=== PATIENT | male | born 1955 | race Caucasian/White ===

== ENCOUNTER 2017-07-04 18:57 | Emergency (ER) | payer SELFPAY ==
[2017-07-04 19:06] VITALS: BP 178/89; BMI 29.9
--- NOTE | 2017-07-04 20:50 | DR.GENAD ---
HPI - PCP Primary Care Physician: JOHANNA - Complaint/Symptoms Chief Complaint Doctors Comments: Patient states he was waling between two trailers last night and he stumpled over something and fell landing on his left hand with swelling and pain mainly in the 5th finger. States his had was swollen more until he took a tylenol. Hit his left forehead but denies LOC, nasuea, vomiting, cold or cough. States he is unsure when he had his last tetanus shot. 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 He denies chest pain, blurred vision or neck pain. states he has an abrasion on his right. Chief Complaint:: STATES THAT HE FELL LAST NIGHT AND STUMBLED OVER SOMETHING. HE STATES HE THINKS HE MAY HAVE BROKEN SOMETHING IN HIS LEFT HAND. PATIENT DENIES SEEING DOCTOR LAST NIGHT. PATIENT REPORTS GREATEST PAIN IS ON THE LEFT HAND NEAR 5TH DIGIT. LEFT HAND IS NOTED WITH EDEMA AND TENDERNESS UPON PALPATION. Self Treatment fo Chief Complaint: MOTRIN FOR PAIN. - Nurses notes reviewed Nurses Notes Review: Yes - Source History Provided: Patient - Mode of Arrival Mode of Arrival: Ambulatory - Timing Onset of Chief Complaint: 07/03/17 Came on: Suddenly - Duration Duration: Constant How lon Duration: Days - Location Location: left hand pain and swelling - Severity Severity: Moderate - Modifying Factors Worsens:: movement Improves:: nothing PMH - PMH Past Medical History: Yes Past Medical History: CVA, Hypertension Past Medical History Comment: MA Past Surgical History: Yes Past Surgical History Comment: RIGHT WRIST SURGERY - Family History History of Family Medical Conditions: No - Social History Type of Tobacco Use: None Alcohol Use: None Lives With: Family Lives Where: Home - infectious screening In the last 2 months have you had wt loss of >10#?: NO Have you had fever, night sweats or hemotysis?: No Have you traveled outside the country in the last 6 months?: No Isolation: Standard ROS - Review of Systems Constitutional: No Symptoms Reported. negative: See HPI, Chills, Diaphoresis, Fever, Malaise, Weakness, Irritable, Fatigue, Loss of Appetite, Other Eyes: No Symptoms Reported ENTM: No Symptoms Reported Respiratoy: No Symptoms Reported. negative: See HPI, Productive Cough, Non- Productive Cough, Moist Cough, Dry Cough, Hacking Cough, Barking Cough, Brassy Cough, Orthopnea, Short of Breath, Stridor, Wheezing, Hemoptysis, Other Cardiovascular: No Symptoms Reported. negative: See HPI, Chest Pain, Edema, Palpitations, Syncope, Cyanosis, Skin Mottling, Other Gastrointestinal/Abdominal: No Symptoms Reported. negative: See HPI, Abdominal Pain, Constipation, Diarrhea, Nausea, Vomiting, Food Intolerance, Other Genitourinary: No Symptoms Reported. negative: See HPI, Discharge, Dysuria, Frequency, Hematuria, Pain, Bleeding, Other Neurological: No Symptoms Reported Musculoskeletal: No Symptoms Reported, Left, Hand (swelling) Integumentary: Lesions (left hand with multiple abrasions), Wound, Bruises Hematologic/Lymphatic: No Symptoms Reported Endocrine: No Symptoms Reported. negative: See HPI, Excessive Sweating, Flushing, Intolerance to Cold, Intolerance to Heat, Increased Hunger, Increased Thirst, Increased Urine, Unexplained Weight Gain, Unexplained Weight Loss, Failure to Thrive, Decreased Appetite, Other Psychiatric: No Symptoms Reported PE - Vital Signs Vitals: Temperature 98.7 F Pulse Rate 99 Respiratory Rate 20 Blood Pressure 178/89 O2 Sat by Pulse Oximetry 99 - General Limitations: No Limitations General Appearance: Alert, In Distress (slight) - Head Head Exam: Normal Inspection, Normocephalic. negative: Atraumatic (right eyebrow with 2 cm superficial laceration) - Eyes Eye exam: Normal Appearance, PERRL, EOMI. negative: Scleral Icterus, Conjunctival Injection, Nystagmus, Miosis, Mydrasis, Periorbital Swelling, Periorbital Tenderness, Other - ENT ENT Exam: Normal Exam, Normal Oropharynx, Normal External Ear Exam, Mucous Membranes Moist, TM's Normal Bilaterally External Ear Exam: Normal External Inspection TM/Canal Exam: Bilateral Normal Nose Exam: Normal Nose Exam Mouth Exam: Normal Inspection Throat Exam: Normal Inspection - Neck Neck Exam: Normal Inspection, Full ROM, Trachea Midline. negative: Tenderness, Meningismus, Lymphadenopathy, Thyromegaly, Other - Chest Chest Inspection: Normal Inspection, Symmetric Chest Wall Rise - Respiratory Respiratory Exam: Normal Lung Sounds Bilat Respiratory Exam: Bilateral Clear to Auscultation - Cardiovascular Cardiovascular Exam: Regular Rate, Normal Heart Sounds, Diastolic Murmur - Abdominal Exam Abdominal Exam: Normal Inspection, Normal Bowel Sounds, Soft Abdominal Tenderness: negative: RUQ, RLQ, LUQ, LLQ, Epigastrium, Suprapubic, Diffuse, Mild, Moderate, Severe, Other - Extremities Extremities Exam: Normal Inspection, Full ROM, Tenderness (left hand with moderate swelling abrasions; skin tears), Normal Capillary Refill - Back Back Exam: Normal Inspection, Full ROM - Neurologic Neurological Exam: Alert, Oriented X3, CN II-XII Intact, Normal Gait, Reflexes Normal - Psychiatric Psychiatric Exam: Normal Affect, Normal Mood - Skin Skin Exam: Warm, Dry, Intact, Normal Color ROR - Labs Reviewed Laboratory Results Reviewed?: Yes (all x-ray results reviewed and discussed with patient) - XRAY XRAY Interpreted by: Radiologist (left hand: Oblique fracature through the base of the proximal phalanx of 5th digit) - Diagnosis Discharge Problem: Fall Proximal phalanx fracture of finger Qualifiers: Encounter type: initial encounter Finger: little finger Laterality: left Abrasion of left hand and fingers Qualifiers: Encounter type: initial encounter Qualified Code(s): S60.512A - Abrasion of left hand, initial encounter; S60.419A - Abrasion of unspecified finger, initial encounter; S60.419A - Abrasion of unspecified finger, initial encounter Contusion of left hand Qualifiers: Encounter type: initial encounter Qualified Code(s): S60.222A - Contusion of left hand, initial encounter - Discharge Plan Disposition: 01 HOME, SELF-CARE Condition: Stable Prescriptions: Cephalexin [KEFLEX CAP 500 MG *] 500 mg PO TID #30 cap Ibuprofen [MOTRIN TAB 800 MG *] 800 mg PO BID PRN #60 tab PRN Reason: Pain/Inflammation Mupirocin Oint [BACTROBAN OINT 2%] 1 applic EXT BID #22 gm - Follow ups/Referrals Follow ups/Referrals: JAMIE SPENCER [Primary Care Provider] - 3 days SOUTH PERKINS [STAFF PHYSICIAN] - 3 days - Instructions Instructions: Avulsion Fracture of the Hand, Metacarpal Fracture, Crush Injury , Fingers or Toes, [id number], Laceration Care, Adult, [id number], Fall Prevention in the Home, [id number]
--- NOTE | 2017-07-04 21:37 | RAD ---
HAND RADIOGRAPHS CLINICAL HISTORY: 61-year-old male with left hand pain. COMPARISON: None. FINDINGS: Three views of the left hand demonstrate an oblique fracture through the base of the proxim al phalanx of the 5th digit with surrounding edema. Remaining osseous structures are intact and joint spaces are congruent. IMPRESSION: Oblique fracture through the base of the proximal phalanx of the 5th digit with surrounding edema wit hout extension into the joint. Reported By:
[2017-07-04] MEDS ORDERED: ADACEL TDaP IM ONE ×2 (21:45→21:56)
[2017-07-04] MEDS ORDERED: KEFLEX CAP 500 MG PO ONE ×2 (21:46→21:55)
[2017-07-04] MEDS ORDERED: BACTROBAN OINT TOP ONE (21:47)
== END 2017-07-04 22:29 | disposition home or self-care (01) ==
LOC: ER 18:57
DX: S62.617A Displaced fracture of proximal phalanx of left little finger, initial encounter for closed fracture (principal); S60.512A Abrasion of left hand, initial encounter; S60.419A Abrasion of unspecified finger, initial encounter; S60.222A Contusion of left hand, initial encounter; W19.XXXA Unspecified fall, initial encounter; Y92.9 Unspecified place or not applicable
CPT/HCPCS: 73130; 99282; 99283

== ENCOUNTER → 2017-07-11 | Outpatient (CLI) | payer BC ==
[2017-07-04 19:06] VITALS: BP 178/89
[2017-07-11 10:36] LABS: BASOPHILS # (AUTO) 0.1 X10^3/uL (0.0-0.1); BASOPHILS % (AUTO) 0.9 % (0.2-1.0); EOSINOPHILS # (AUTO) 0.3 x10^3/uL (0.0-0.2); EOSINOPHILS % (AUTO) 3.7 % (0.9-2.9); HEMATOCRIT 40.2 % (42.0-54.0); HEMOGLOBIN 13.9 g/dL (13.5-18.0); LYMPHOCYTES # (AUTO) 1.4 X10^3/uL (1.3-2.9); LYMPHOCYTES % (AUTO) 17.2 % (21.0-51.0); MEAN CORPUSCULAR HEMOGLOBIN 29.2 pg (27.0-34.0); MEAN CORPUSCULAR HGB CONC 34.6 g/dL (33.0-35.0); MEAN CORPUSCULAR VOLUME 84.2 fL (80.0-100.0); MEAN PLATELET VOLUME 7.9 fL (7.4-11.0); MONOCYTES # (AUTO) 0.4 x10^3/uL (0.3-0.8); MONOCYTES % (AUTO) 5.2 % (0.0-13.0); NEUTROPHILS # (AUTO) 6.1 x10^3/uL (2.2-4.8); PLATELET COUNT 201 X10^3/uL (150.0-450.0); RED BLOOD COUNT 4.78 X10^6/uL (4.7-6.0); RED CELL DISTRIBUTION WIDTH 14.6 % (11.6-16.5); WHITE BLOOD COUNT 8.4 X10^3/uL (3.6-10.0)
[2017-07-11 10:45] LABS: ALANINE AMINOTRANSFERASE 30 Units/L (12-78); ALBUMIN 3.6 g/dL (3.4-5.0); ALKALINE PHOSPHATASE 97 Units/L (46-116); ASPARTATE AMINO TRANSFERASE 16 Units/L (15-37); BLOOD UREA NITROGEN 20 mg/dL (7-18); CALCIUM 7.9 mg/dL (8.5-10.1); CARBON DIOXIDE 28.8 mmol/L (21-32); CHLORIDE 104 mmol/L (98-107); CHOL/HDL RATIO 5.8 (0.0-5.0); CHOLESTEROL 190 mg/dL (0-200); COR NA(FOR HYPERGLY) 145 mmol/L (136-145); CREATININE 0.71 mg/dL (0.70-1.30); HDL CHOLESTEROL 33 mg/dL (40-60); SODIUM 141 mmol/L (136-145); TOTAL PROTEIN 7.2 g/dL (6.4-8.2); TRIGLYCERIDES 250 mg/dL (0-150); eGFR BLACK RACES > 60 (>60); eGFR NON BLACK RACES > 60 (>60)
[2017-07-11 10:51] LABS: CREATININE,URINE 29.15 mg/dL (40-278)
[2017-07-11 10:53] LABS: HEMOGLOBIN A1C 9.2 %
== END ==
LOC: LAB 09:56
PROVIDERS: ATTEND Obstetrics & Gynecology Obstetrics
DX: E11.9 Type 2 diabetes mellitus without complications (principal); S62.617A Displaced fracture of proximal phalanx of left little finger, initial encounter for closed fracture; X58.XXXA Exposure to other specified factors, initial encounter
CPT/HCPCS: 36415; 80053; 80061; 82043; 83036; 83525; 85025; 93005; 93010

== ENCOUNTER 2017-07-20 11:54 | Emergency (ER) | payer BC, OTHER ==
[2017-07-20 12:05] VITALS: BP 180/88; BMI 29.7
--- NOTE | 2017-07-20 12:53 | DR.CP ---
HPI - Time Seen Time seen: 13:30 - PCP Primary Care Physician: DR. SPENCER - HPI Comment HPI Comment: PATIENT DENIES CHEST PAIN, WEAKNESS, NAUSEA. SLIGHT SOB ON EXERTION. DENIES NEAR SYNCOPAL EPISODES OR SYNCOPE. HISTORY HYPERTENSION. EKG DONE FOR PRE SURGICAL CLEARANCE FOR HAND SURGERY. - Complaint Chief Complaint Doctor Comments: OUT PATIENT EKG DONE AND ST ELEVATION PRESENT. HERE FOR EVALUATION. Chief Complaint:: PATIENT WAS HERE FOR PRE OP FOR DR. ZAPATA AND HIS EKG WAS ABNORMAL. RES. BROUGHT PATIENT OVER FOR FUTHER EVALUATION. - Reviewed Nurses Notes Review: Yes - Source History Provided: Patient - Mode of Arrival Mode of Arrival: Wheelchair - Timing Onset of Chief Complaint: 07/20/17 Came on: Suddenly - Duration Duration: Constant Duration: Days - Location Chest Pain Radiation Location: None - Associated Signs and Symptoms Associated Signs and Symptoms: None PMH - PMH Past Medical History: Yes Past Medical History: Hypertension Past Surgical History: No - Family History History of Family Medical Conditions: No - Social History Type of Tobacco Use: Smokeless Does any household member use tobacco: No Alcohol Use: None Do you use any recreational Drugs:: No Lives With: Family Lives Where: Home - infectious screening In the last 2 months have you had wt loss of >10#?: NO Have you had fever, night sweats or hemotysis?: No Have you traveled outside the country in the last 6 months?: No Isolation: Standard ROS - Review of Systems Constitutional: No Symptoms Reported Eyes: No Symptoms Reported ENTM: No Symptoms Reported Respiratoy: No Symptoms Reported Cardiovascular: No Symptoms Reported Gastrointestinal/Abdominal: No Symptoms Reported Genitourinary: No Symptoms Reported Neurological: No Symptoms Reported Musculoskeletal: Left, Hand (IN CAST.) Integumentary: No Symptoms Reported Hematologic/Lymphatic: No Symptoms Reported Endocrine: No Symptoms Reported All Other Systems: Reviewed and Negative PE - Vitals Vitals: Temperature 98.1 F Pulse Rate 78 Respiratory Rate 20 Blood Pressure 180/88 O2 Sat by Pulse Oximetry 94 - General Limitations: No Limitations General Appearance: Alert - Head Head Exam: Normal Inspection - Eyes Eye exam: Normal Appearance - ENT ENT Exam: Normal External Ear Exam - Chest Chest Inspection: Symmetric Chest Wall Rise - Respiratory Respiratory Exam: Normal Lung Sounds Bilat Respiratory Exam: Bilateral Clear to Auscultation - Cardiovascular Cardiovascular Exam: Regular Rate, Normal Rhythm, Normal Heart Sounds Pulse: Normal - Abdominal Exam Abdominal Exam: Normal Inspection - Extremities Extremities Exam: Tenderness (LT HAND AND WRIST IMMOBILIZE) - Back Back Exam: Normal Inspection - Neurologic Neurological Exam: Alert, Oriented X3, CN II-XII Intact. negative: Motor Sensory Deficit - Psychiatric Psychiatric Exam: Normal Affect, Normal Mood - Skin Skin Exam: Normal Color MDM - Differential Diagnosis Differential Diagnosis: Myocardial Infarction, Pericarditis (CAD) Course - Treatment Treatment: LABS DONE FOR PRE-OP. CARDIAC ENZYMES ORDER ZENA DONE ON SAME BLOOD IN LAB. - Education/Counseling Education/Counseling: Patient, Education Educated On: Needs for Follow Up (PATIENT LEFT BEFORE EVALUATION COMPLTED. D/C AMA.) ROR - Labs Reviewed Laboratory Results Reviewed?: Yes Laboratory: Creatine Kinase 67 Units/L (39-308) 07/20/17 11:26 CK-MB (CK-2) 2.2 ng/mL (0-4.0) 07/20/17 11:26 CK/CKMB % Calc 3.3 % (<4) 07/20/17 11:26 Troponin I 0.02 ng/mL (0-1.5) 07/20/17 11:26 - EKG ST: Inf (INFERIOR WALL ST ELEVATION.) - Diagnosis Discharge Problem: Abnormal EKG - Discharge Plan Disposition: AGAINST MEDICAL ADVICE Condition: Stable - Follow ups/Referrals Follow ups/Referrals: JAMIE SPENCER [Primary Care Provider] - 3 days - Instructions Instructions: Electrocardiogram, [id number] Additional Instructions: DISCHARGE AMA. FOLLOW UP WITH PCP ANGELA. YOUR EKG IS ABNORMAL.
[2017-07-20 13:03] LABS: CKMB % 3.3 % (<4); CREATINE KINASE MB 2.2 ng/mL (0-4.0); TROPONIN I 0.02 ng/mL (0-1.5)
== END 2017-07-20 14:06 | disposition left against medical advice (07) ==
LOC: ER 12:09
DX: R94.31 Abnormal electrocardiogram [ECG] [EKG] (principal)
CPT/HCPCS: 36415; 82550; 82553; 84484; 93005; 93010; 99282

== ENCOUNTER → 2017-07-20 | Outpatient (CLI) | payer OTHER ==
[2017-07-04 19:06] VITALS: BP 178/89
[2017-07-20 12:09] LABS: BASOPHILS % (AUTO) 0.5 % (0.2-1.0); EOSINOPHILS # (AUTO) 0.3 x10^3/uL (0.0-0.2); HEMATOCRIT 39.6 % (42.0-54.0); HEMOGLOBIN 13.5 g/dL (13.5-18.0); LYMPHOCYTES # (AUTO) 1.6 X10^3/uL (1.3-2.9); LYMPHOCYTES % (AUTO) 20.5 % (21.0-51.0); MEAN CORPUSCULAR HEMOGLOBIN 28.9 pg (27.0-34.0); MEAN CORPUSCULAR HGB CONC 34.2 g/dL (33.0-35.0); MEAN CORPUSCULAR VOLUME 84.5 fL (80.0-100.0); MEAN PLATELET VOLUME 8.4 fL (7.4-11.0); MONOCYTES # (AUTO) 0.4 x10^3/uL (0.3-0.8); MONOCYTES % (AUTO) 5.6 % (0.0-13.0); NEUTROPHILS # (AUTO) 5.5 x10^3/uL (2.2-4.8); NEUTROPHILS % (AUTO) 69.4 % (42.0-75.0); PLATELET COUNT 175 X10^3/uL (150.0-450.0); RED BLOOD COUNT 4.69 X10^6/uL (4.7-6.0); RED CELL DISTRIBUTION WIDTH 14.7 % (11.6-16.5); WHITE BLOOD COUNT 7.9 X10^3/uL (3.6-10.0)
[2017-07-20 12:16] LABS: ALANINE AMINOTRANSFERASE 29 Units/L (12-78); ALBUMIN 3.6 g/dL (3.4-5.0); ALKALINE PHOSPHATASE 101 Units/L (46-116); ASPARTATE AMINO TRANSFERASE 14 Units/L (15-37); BLOOD UREA NITROGEN 14 mg/dL (7-18); CALCIUM 7.9 mg/dL (8.5-10.1); CARBON DIOXIDE 27.9 mmol/L (21-32); CHLORIDE 101 mmol/L (98-107); COR NA(FOR HYPERGLY) 144 mmol/L (136-145); CREATININE 0.74 mg/dL (0.70-1.30); SODIUM 139 mmol/L (136-145); eGFR BLACK RACES > 60 (>60); eGFR NON BLACK RACES > 60 (>60)
[2017-07-20 12:34] LABS: BILIRUBIN,URINE NEGATIVE (NEGATIVE); BLOOD/HEMOGLOBIN,URINE 1+ (NEGATIVE); GLUCOSE, URINE 4+ (NEGATIVE); KETONES,URINE NEGATIVE (NEGATIVE); LEUKOCYTE ESTERASE ,URINE NEGATIVE (NEGATIVE); NITRITES,URINE NEGATIVE (NEGATIVE); PROTEIN,URINE 2+ (NEGATIVE); UROBILINOGEN,URINE NORMAL (NORMAL)
[2017-07-20 12:41] LABS: APPEARANCE,URINE CLEAR (CLEAR); BACTERIA,URINE NEGATIVE /HPF (NEGATIVE); COLOR,URINE YELLOW (YELLOW); MUCUS,URINE FEW /HPF (NEGATIVE); RBC,URINE 0-2 /HPF (NONE SEEN); SQUAMOUS EPITHELIAL CELL,UR NEGATIVE /HPF (NEGATIVE)
[2017-07-20 12:42] LABS: ERYTHROCYTE SEDIMENTATION RATE 2 MM/HOUR (0-15)
--- NOTE | 2017-07-20 18:45 | RAD ---
HISTORY: Chest pain Study: Single-view chest. Comparison: None. Findings: The trachea is midline. The cardiac silhouette is unremarkable. The lungs are clear without focal i nfiltrate or effusion. The bony thorax is unremarkable. IMPRESSION: No acute cardiopulmonary disease. Soft tissue fullness in the right suprahilar region warrants follow-up with either formal PA and late ral views of the chest with improved inspiratory effort or noncontrast chest CT imaging to exclude a lung nodule versus pulmonary artery. Reported By:
== END ==
LOC: LAB 11:10
PROVIDERS: ATTEND Orthopaedic Surgery
DX: Z01.818 Encounter for other preprocedural examination (principal); Z01.810 Encounter for preprocedural cardiovascular examination; Z01.811 Encounter for preprocedural respiratory examination; Z79.899 Other long term (current) drug therapy; Z11.8 Encounter for screening for other infectious and parasitic diseases; S62.617A Displaced fracture of proximal phalanx of left little finger, initial encounter for closed fracture; X58.XXXA Exposure to other specified factors, initial encounter
CPT/HCPCS: 36415; 71045; 80053; 81001; 85025; 85652; 86140; 87640; 87641; 93005; 93010

== ENCOUNTER 2017-07-22 07:35 | Day surgery (SDC) | payer BC, OTHER ==
[2017-07-22] MEDS ORDERED: BACTROBAN OINT ONE (07:45)
[2017-07-22] MEDS ORDERED: XYLOCAINE 1 % (PLAIN) ONE (07:45)
[2017-07-22] MEDS: ANCEF 1 GM IV PREMIX* 1 GM/50 ML BAG IV ONE ×2 (08:05→08:30)
[2017-07-22] MEDS: NS 1000 ML 1,000 ML ONE ×2 (08:06→08:09)
[2017-07-22] MEDS ORDERED: FENTANYL INJ 100 mcg ONE (08:17)
[2017-07-22] MEDS ORDERED: MARCAINE 0.5% ONE ×2 (08:17→15:38)
[2017-07-22] MEDS ORDERED: ADRENALINE CHL INJ ONE (08:31)
[2017-07-22] MEDS ORDERED: NS IRRIGATION 1000 ML 1,000 ML with BACITRACIN VIAL 50,000 UNT IR ONE ×2 (09:17)
[2017-07-22] MEDS ORDERED: BENADRYL INJ 50 MG VIAL IVP PRN (10:29)
[2017-07-22] MEDS ORDERED: REGLAN INJ 10 MG VIAL IVP PRN (10:29)
[2017-07-22] MEDS ORDERED: ZOFRAN INJ 4 MG VIAL IVP PRN (10:29)
[2017-07-22] MEDS ORDERED: DILAUDID INJ IVP PRN (10:29)
[2017-07-22] MEDS ORDERED: PHENERGAN INJ 25 MG IVP PRN (10:29)
[2017-07-22] MEDS ORDERED: HYDROGEN PEROXIDE 3% ONE (10:32)
[2017-07-22] MEDS ORDERED: PERCOCET TAB 5/325 MG PO PRN (11:05)
--- NOTE | 2017-07-22 11:16 | RAD ---
HISTORY: Fracture follow-up Study: Left hand AP, lateral, oblique Comparison: 07/04/2017 Findings: The previously noted fracture of the proximal 5th phalanx has undergone open reduction and internal f ixation with a plate and 6 screws. Position and alignment is nearly anatomic. The remainder of the dickson meghna and joints of the left hand are intact and normally aligned. IMPRESSION: Status post successful open reduction, internal fixation fracture 5th proximal phalanx Reported By:
[2017-07-22] MEDS ORDERED: PERCOCET TAB 5/325 MG ONE (12:01)
[2017-07-22 12:16] VITALS: BP 179/83
[2017-07-22] MEDS ORDERED: SUPRANE IN ONE (15:38)
[2017-07-22] MEDS ORDERED: XYLOCAINE 2 % (PLAIN) ONE (15:38)
[2017-07-22] MEDS ORDERED: VERSED ONE (15:38)
[2017-07-22] MEDS ORDERED: DIPRIVAN VIAL ONE (15:38)
== END 2017-07-22 12:16 | disposition home or self-care (01) ==
LOC: SURG1 07:35
PROVIDERS: ATTEND Orthopaedic Surgery
PROC: 0PSV04Z Reposition Left Finger Phalanx with Internal Fixation Device, Open Approach (ICD-10-PCS; principal; 2017-07-22 08:30)
DX: S62.617A Displaced fracture of proximal phalanx of left little finger, initial encounter for closed fracture (principal); X58.XXXA Exposure to other specified factors, initial encounter
CPT/HCPCS: 73130; 76000; A4222; S0020; J0170; J0690; J2001; J2250; J3010; J3490

== ENCOUNTER → 2017-08-14 | Outpatient (CLI) | payer OTHER ==
[2017-07-22 12:16] VITALS: BP 179/83
--- NOTE | 2017-08-14 08:52 | RAD ---
Examination: Left hand, three views History: Fracture follow-up Comparison reference 07/22/2017 Findings: Again is demonstrated the surgical fixation applied to the fracture of the proximal phalanx , 5th finger. Position and alignment of fracture fragments remain anatomic. The fracture line remains faintly visible and bony union is not complete. There is no evidence for hardware failure, bone infe ction or re-injury. Soft tissue swelling again noted. Impression: Stable appearance of ORIF, proximal phalanx 5th finger fracture. Reported By:
== END ==
LOC: RAD 08:22
PROVIDERS: ATTEND Orthopaedic Surgery
DX: S62.617D Displaced fracture of proximal phalanx of left little finger, subsequent encounter for fracture with routine healing (principal); X58.XXXD Exposure to other specified factors, subsequent encounter
CPT/HCPCS: 73130

== ENCOUNTER → 2017-09-04 | Outpatient (CLI) | payer OTHER ==
--- NOTE | 2017-09-04 10:00 | RAD ---
Left hand, three views Indication: Fracture follow-up Comparison: 08/14/2017 Findings: Internally fixated fracture of the little finger proximal phalanx demonstrates minimal prog ressive healing without change in alignment or hardware complication. Mild associated soft tissue swe lling persists. No new osseous abnormality identified. Impression: Progressive healing without change in alignment or hardware complication. Reported By:
== END ==
LOC: RAD 09:16
PROVIDERS: ATTEND Orthopaedic Surgery
DX: S62.617D Displaced fracture of proximal phalanx of left little finger, subsequent encounter for fracture with routine healing (principal); X58.XXXD Exposure to other specified factors, subsequent encounter
CPT/HCPCS: 73130